=== PATIENT | female | born 1950 | race Caucasian/White ===

== ENCOUNTER 2017-02-20 08:58 | Emergency (ER) | payer OTHER ==
[~2017-02-20] VITALS: Ht 160 cm; Wt 100.4 kg
[~2017-02-20 08:58] MED LIST: ASPIR-LOW81 MG PO; ATIVAN1 MG PO; CENTRUM SILVER1 EAC3 PO; CIPRO500 MG PO; CYMBALTA60 MG PO; HYDROCHLOROTHIA25 MG PO; K-DUR20 MEQ PO; KEFLEX500 MG PO; LIPITOR40 MG PO; LISINOPRIL20 MG PO; NEXIUM40 MG PO; NORVASC10 MG PO; PREMARIN0.3 MG PO; PROVERA,CYCRIN5 MG PO; TOPROL XL100 MG PO; TRAZODONE HCL100 MG PO; VITAMIN B12-FO1 EACH PO
[2017-02-20 11:00] LABS: HEMATOCRIT 39.4 % (36.0-46.0); MCH 31.1 PG (29.0-34.0); MCHC 34.3 G/DL (30.0-36.0); MCV 90.8 FL (83-99); MEAN PLAT.VOLUME 9.9 uM^3 (9.5-12.4); PLATELET COUNT 226 K/uL (156-360); RBC DIS.WIDTH-CV 11.9 % (11.8-14.6); RBC DIS.WIDTH-SD 39.8 % (39-53); RED BLOOD COUNT 4.34 M/uL (3.80-5.20); WHITE BLOOD COUNT 9.8 K/uL (4.1-10.2)
[2017-02-20 11:19] LABS: CHLORIDE 100 mEq/L (99-109); POTASSIUM 3.8 mEq/L (3.7-5.4); SODIUM 140 mEq/L (136-147)
[2017-02-20 11:21] LABS: GLUCOSE 105 mg/dL (70-99)
[2017-02-20 11:23] LABS: ANION GAP 15 MEQ/L (2-14); TOTAL BILIRUBIN 1.2 mg/dL (0.0-1.0)
[2017-02-20 11:24] LABS: TROP-I INTERPRETATION NEGATIVE; TROPONIN-I < 0.01 ng/mL (0.0-0.30)
[2017-02-20 11:25] LABS: ALKALINE PHOSPHATASE 110 IU/L (3-129); GFR ESTIMATE (CALCULATED) > 59 mL/min/
[2017-02-20 11:26] LABS: UREA NITROGEN (BUN) 15 mg/dL (9-23)
[2017-02-20 11:28] LABS: LIPASE 10 U/L (1.0-51.0)
[2017-02-20] MEDS ORDERED: ZOFRAN4 MG PO (12:09)
[2017-02-20 13:01] VITALS: BP 151/70
== END 2017-02-20 13:03 | disposition home or self-care (01) ==
LOC: EME 08:58
PROVIDERS: Emergency Medicine
DX: K29.70 Gastritis, unspecified, without bleeding (principal); F41.9 Anxiety disorder, unspecified; R05 Cough; I10 Essential (primary) hypertension; E78.5 Hyperlipidemia, unspecified; Z85.828 Personal history of other malignant neoplasm of skin; Z87.891 Personal history of nicotine dependence
CPT/HCPCS: 71020; 74176; 80053; 83690; 84484; 85027; 93005; 99281; 99285; J2060; J2270; J2405; J7030

== ENCOUNTER 2018-03-04 08:38 | Emergency (ER) | payer OTHER ==
[~2018-03-04] VITALS: Ht 160 cm; Wt 102.9 kg
[~2018-03-04 08:38] MED LIST changes: +ZOFRAN4 MG PO
[2018-03-04] MEDS ORDERED: FLEXERIL10 MG PO (10:32)
[2018-03-04] MEDS ORDERED: LIDODERM 5% P1 PATCH TD (10:33)
[2018-03-04 11:47] VITALS: BP 134/76
== END 2018-03-04 12:10 | disposition home or self-care (01) ==
LOC: EME 08:38
DX: R51 Headache (principal); M62.838 Other muscle spasm; I10 Essential (primary) hypertension; E78.5 Hyperlipidemia, unspecified; Z85.828 Personal history of other malignant neoplasm of skin; Z87.891 Personal history of nicotine dependence; Z90.49 Acquired absence of other specified parts of digestive tract; Z88.5 Allergy status to narcotic agent
CPT/HCPCS: 70450; 99281; 99285; J1885